=== PATIENT | female | born 2000 | race Caucasian/White ===

== ENCOUNTER 2021-04-24 06:36 | Day surgery (SDC) | payer MEDICAID, SELFPAY ==
[~2021-04-24] VITALS: Ht 154.9 cm; Wt 90.7 kg
[2021-04-24 07:11] LABS: HCG,QUAL RESULT NEGATIVE (NEGATIVE)
[2021-04-24] MEDS ORDERED: MIDAZOLAM HCL 5 MG/5 ML VIAL ONE (08:25)
[2021-04-24] MEDS ORDERED: fentaNYL CITRATE/PF 100 MCG/2 ML AMP ONE (08:25)
[2021-04-24] MEDS ORDERED: SIMETHICONE 40 MG/0.6 ML ML ONE (08:25)
[2021-04-24] MEDS ORDERED: MEPERIDINE 100 MG INJ. 100 MG/ML VIAL ONE (08:32)
[2021-04-24 11:12] VITALS: BP_SYST 108
[2021-04-24] MEDS ORDERED: HYDROmorphone 1 MG/ML INJ. CARTRIDGE IVP ONE (11:30)
[2021-04-24] MEDS ORDERED: ONDANSETRON HCL 4 MG/2 ML VIAL IVP ONE (11:30)
== END 2021-04-24 09:50 | disposition home or self-care (01) ==
LOC: SDS 06:36 → SMU 06:40 → SDS 09:50
PROVIDERS: ATTEND Internal Medicine Gastroenterology
DX: D50.9 Iron deficiency anemia, unspecified (principal); K29.70 Gastritis, unspecified, without bleeding; K64.4 Residual hemorrhoidal skin tags; Z20.822 Contact with and (suspected) exposure to COVID-19; Z79.899 Other long term (current) drug therapy
CPT/HCPCS: 43239; 45378; 84703; 88305; 88312; 88313; 99152; 99153; G0378; J2175; J2250; U0003; J3010